=== PATIENT | female | born 1990 | race Caucasian/White ===

== ENCOUNTER → 2022-04-27 16:15 | Outpatient (BNVA) | payer SELFPAY | PROVIDERS: Visit Provider Nurse Practitioner Family | DX: J02.9 Acute pharyngitis, unspecified (principal) | CPT/HCPCS: 87426 ==

== ENCOUNTER 2023-02-17 13:55 | Emergency (ER) | payer SELFPAY ==
[2023-02-17 14:02] VITALS: BP 101/67; PULSE 82; RESP 14; TEMP 36.7; O2SAT 98; BMI 48.4
[2023-02-17 16:10] LABS: Basophils # 0.1 10^3/uL (0.0-0.1); Basophils % 0.5 %; Eosinophils # 0.2 10^3/uL (0.0-0.8); Eosinophils % 2.4 %; Hematocrit 45.6 % (37.0-47.0); Hemoglobin 14.5 g/dL (11.5-15.3); Lymphocytes # 2.9 10^3/uL (0.8-4.8); Lymphocytes % 29.8 %; Mean Corpuscular HGB Conc 31.8 g/dL (30.0-36.0); Mean Corpuscular Hemoglobin 27.5 pg (28.0-34.0); Mean Corpuscular Volume 86.5 fl (81-99); Mean Platelet Volume 10.5 fL (7.4-10.4); Monocytes # 0.7 10^3/uL (0.2-0.9); Monocytes % 6.7 %; Neutrophils % 60.2 %; Nucleated Red Blood Cells % 0 %; Platelet Count 236 10^3/cmm (130-400); Red Blood Count 5.27 10^6/uL (4.1-5.3); Red Cell Distribution Width 12.8 % (12.1-15.1); White Blood Count 9.8 10^3/uL (4.0-10.0)
[2023-02-17 16:38] LABS: Alanine Aminotransferase 22 U/L (0-33); Albumin Level 3.8 g/dL (3.5-5.2); Alkaline Phosphatase 85 U/L (35-105); Aspartate Amino Transferase 16 U/L (0-32); Blood Urea Nitrogen 10 mg/dL (6-20); Calcium 8.4 mg/dL (8.5-10.5); Carbon Dioxide 23 mmol/L (22-29); Chloride 105 mmol/L (98-107); Globulin 2.7 g/dL (1.3-4.6); Glomerular Filtration Rate 116.6 mL/min (90-130); Glucose 95 mg/dL (65-115); Osmolality Calculated 283 mOsm/kg (285-295); Sodium 137 mmol/L (136-145); Total Bilirubin 0.3 mg/dL (0.15-1.2); Total Protein 6.5 g/dL (6.6-8.7)
--- NOTE | 2023-02-17 16:51 | ED_ITS ---
HPI - Female Genitourinary General: Chief complaint: Vaginal Bleeding Stated complaint: vaginal bleeding, positive test Time Seen by Provider: 02/17/23 16:42 Source: patient Mode of arrival: ambulatory Limitations: no limitations History of Present Illness: Patient is a 32-year-old female who presents to ED today for evaluation of vaginal bleeding that she thinks could be secondary to a miscarriage. Patient states 2 days ago she began having vaginal bleeding. She states her last menstrual period was beginning of December. Reports she took a home test and it was positive. She is not having any pelvic/abdominal pain. MD elicited complaint: vaginal bleeding and possible miscarriage Severity: mild Vaginal discharge: none Vaginal bleeding: moderate Exacerbating factors: none Relieving factors: none Associated symptoms: Reports no associated symptoms; Deny abdominal pain, headache(s) or vaginal discharge Treatment prior to arrival: none Sexual activity: Yes Possible : unsure if and at home test positive Review of Systems Const: Denies: fever(s), chills, body aches, fatigue or malaise Card: Denies: chest pain Resp: Denies: dyspnea GI: Denies: abdominal pain : Reports: vaginal bleeding; Denies: flank pain, dysuria, hematuria, genital lesions, genital pruritis, vaginal odor, vaginal discharge or pelvic pain Neuro: Denies: headache(s) or dizziness PFSH ED PFSH: Social History Smoking and tobacco status: current every day smoker Physical Exam Const: COMMON NORMALS: no acute distress, patient oriented x3, no limitations and alert GENERAL APPEARANCE: cooperative NUTRITIONAL APPEARANCE: obese morbidly obese ORIENTATION/CONSCIOUSNESS: Yes awake, Yes oriented to person, Yes oriented to place and Yes oriented to time Resp: COMMON NORMALS: normal respiratory effort and clear to auscultation bilaterally AUSCULTATION: clear to auscultation bilaterally Cardio: COMMON NORMALS: regular rate and regular rhythm RATE: regular rate RHYTHM: regular rhythm GI: COMMON NORMALS: Normal to inspection, nondistended, normoactive bowel sounds present, Soft to palpation and non-tender PALPATION: Yes Soft to palpation Neuro: ARIES COMA SCALE: document GCS findings Aries coma scale eye opening: Spontaneous Aries coma scale verbal response: Orientated [place] coma scale motor response: Obey commands [place] coma scale total score: 15 COMMON NORMALS: patient oriented x3 SENSORIUM/ORIENTATION: Yes alert, Yes oriented to person, Yes oriented to place and Yes oriented to time Course Vital Signs: Vital signs: Vital Signs Temperature 98.0 F 02/17/23 14:02 Pulse Rate 82 02/17/23 14:02 Respiratory Rate 14 02/17/23 14:02 Blood Pressure 101/67 02/17/23 14:02 Pulse Oximetry 98 02/17/23 14:02 Oxygen Delivery Me thod Room Air 02/17/23 14:02 MDM - Female Medical Decision Making Patient's hCG quantitative is 1.0 corresponding to a non female. Vital signs are stable. The remainder of her blood work is unremarkable. Bleeding most likely related to menstrual cycle. Patient is stable for discharge. Lab Data 02/17/23 16:01 02/17/23 16:01 Laboratory Results WBC 9.8 10^3/uL (4.0-10.0) 02/17/23 16:01 RBC 5.27 10^6/uL (4.1-5.3) 02/17/23 16:01 Hgb 14.5 g/dL (11.5-15.3) 02/17/23 16:01 Hct 45.6 % (37.0-47.0) 02/17/23 16:01 MCV 86.5 fl (81-99) 02/17/23 16:01 MCH 27.5 pg (28.0-34.0) L 02/17/23 16:01 MCHC 31.8 g/dL (30.0-36.0) 02/17/23 16:01 RDW 12.8 % (12.1-15.1) 02/17/23 16:01 Plt Count 236 10^3/cmm (130-400) 02/17/23 16:01 MPV 10.5 fL (7.4-10.4) H 02/17/23 16:01 Neut % (Auto) 60.2 % 02/17/23 16:01 Lymph % (Auto) 29.8 % 02/17/23 16:01 Sanders % (Auto) 6.7 % 02/17/23 16:01 Eos % (Auto) 2.4 % 02/17/23 16:01 Baso % (Auto) 0.5 % 02/17/23 16:01 Neut # (Auto) 5.90 10^3/uL (1.8-7.7) 02/17/23 16:01 Lymph # (Auto) 2.9 10^3/uL (0.8-4.8) 02/17/23 16:01 Sanders # (Auto) 0.7 10^3/uL (0.2-0.9) 02/17/23 16:01 Eos # (Auto) 0.2 10^3/uL (0.0-0.8) 02/17/23 16:01 Baso # (Auto) 0.1 10^3/uL (0.0-0.1) 02/17/23 16:01 Nucleated RBC % (auto) 0 % 02/17/23 16:01 Nucleated RBCs # 0.0 /100WBC 02/17/23 16:01 Sodium 137 mmol/L (136-145) 02/17/23 16:01 Potassium 4.0 mmol/L (3.5-5.1) 02/17/23 16:01 Chloride 105 mmol/L (98-107) 02/17/23 16:01 Carbon Dioxide 23 mmol/L (22-29) 02/17/23 16:01 Anion Gap 13.0 (5-19) 02/17/23 16:01 BUN 10 mg/dL (6-20) 02/17/23 16:01 Creatinine 0.6 mg/dL (0.5-0.9) 02/17/23 16:01 GFR Calculation 116.6 mL/min (90-130) 02/17/23 16:01 Glucose 95 mg/dL (65-115) 02/17/23 16:01 Calculated Osmolality 283 mOsm/kg (285-295) L 02/17/23 16:01 Calcium 8.4 mg/dL (8.5-10.5) L 02/17/23 16:01 Total Bilirubin 0.3 mg/dL (0.15-1.2) 02/17/23 16:01 AST 16 U/L (0-32) 02/17/23 16:01 ALT 22 U/L (0-33) 02/17/23 16:01 Alkaline Phosphatase 85 U/L (35-105) 02/17/23 16:01 Total Protein 6.5 g/dL (6.6-8.7) L 02/17/23 16:01 Albumin 3.8 g/dL (3.5-5.2) 02/17/23 16:01 Globulin 2.7 g/dL (1.3-4.6) 02/17/23 16:01 Ser , Semi-Qnt 1.00 mIU/mL 02/17/23 16:01 Blood Type AB Positive 02/17/23 16:01 Rho(D) Type Positive 02/17/23 16:01 Discharge Plan Discharge Patient Disposition: Home Clinical Impression: Vaginal bleeding Condition: Stable Discharge Orders: Discharge ED (Routine); Ordered 02/17/23 Ordered By: Leia Webster Activity Restrictions/Additional Instructions: As we discussed your hCG/ level was 1.0 which is a non lab value. Coding Level of Care Code ED Electrophysiology Nurse Practitioner for Zac Bai
--- NOTE | 2023-02-20 15:28 | DCPLANNER ---
manager sql called patient due to no primary care physician - no answer at this time.
== END 2023-02-17 17:11 | disposition home or self-care (01) ==
PROVIDERS: Emergency Provider Physician Assistant
DX: N93.9 Abnormal uterine and vaginal bleeding, unspecified (principal)
CPT/HCPCS: 36415; 80053; 84702; 85025; 86900; 99283